=== PATIENT | female | born 1950 | race Caucasian/White ===

== ENCOUNTER 2019-06-25 16:00 | Emergency (ER) | payer OTHER ==
[~2019-06-25] VITALS: Ht 152.4 cm; Wt 62.1 kg
[~2019-06-25 16:00] MED LIST: ALLEGRA30 MG/5 ML; ASA-EC81 MG PO; ASPIR 8181 MG; CALAN80 MG; CALTRATE 600600 MG; CORTISONE25 MG; Cordarone 200 MG TAB PO; K-TAB10 MEQ; LOPRESSOR25 MG PO; LOVENOX40 MG/0.4 SUBCUTANEO; NEURONTIN300 MG; NEURONTIN300 MG PO; NEURONTIN600 MG; PARAFON FORTE500 MG; PREDNISONE10 MG PO; Prednisone PO; SYNTHROID88 MCG; Synthroid PO; TOPAMAX15 MG; TRANXENE T-TA3.75 MG; XOPENEX0.63 MG/3 IH
== END 2019-06-25 21:31 | disposition home or self-care (01) ==
LOC: ER 16:00
DX: L97.118 Non-pressure chronic ulcer of right thigh with other specified severity (principal); L98.498 Non-pressure chronic ulcer of skin of other sites with other specified severity; L08.89 Other specified local infections of the skin and subcutaneous tissue

== ENCOUNTER 2021-01-10 23:06 | Inpatient (IN) | payer OTHER ==
[~2021-01-10] VITALS: Ht 162.6 cm; Wt 60.8 kg
[2021-01-10] MEDS ORDERED: TOPAMAX25 MG (23:18)
[2021-01-10] MEDS ORDERED: XARELTO20 MG (23:20)
[2021-01-10] MEDS ORDERED: PROTECT PLUS S1 EACH (23:20)
[2021-01-10] MEDS ORDERED: CLONAZEPAM1 MG (23:20)
[2021-01-10] MEDS ORDERED: SYNTHROID75 MCG (23:20)
[2021-01-10] MEDS ORDERED: GLIMEPIRIDE2 M1 (23:21)
[2021-01-10] MEDS ORDERED: B COMPLEX1 EAC1 (23:21)
[2021-01-10] MEDS ORDERED: ZANTAC25 MG/1 ML (23:21)
[2021-01-10] MEDS ORDERED: BUTRANS (23:21)
[2021-01-12] MEDS ORDERED: RAYOS5 MG (08:24)
[2021-01-12] MEDS ORDERED: FLUDROCORTISON0.1 MG (08:24)
[2021-01-12] MEDS ORDERED: GABAPENTIN600 MG (08:25)
[2021-01-12] MEDS ORDERED: PREDNISONE20 M1 (08:25)
[2021-01-12] MEDS ORDERED: BUPRENORPHINE1 EAC2 (08:27)
[2021-01-12] MEDS ORDERED: CLOTRIMAZOLE-BE15 G1 (08:33)
[2021-01-12] MEDS ORDERED: MUPIROCIN22 GM (08:33)
[2021-01-12] MEDS ORDERED: FLUCONAZOLE100 MG (08:33)
== END 2021-01-12 10:21 | disposition expired | DRG 377 ==
LOC: ER 23:06 → ICU-2 01-11 18:46
PROVIDERS: ADMIT Internal Medicine; ATTEND Internal Medicine
PROC: 30233N1 Transfusion of Nonautologous Red Blood Cells into Peripheral Vein, Percutaneous Approach (ICD-10-PCS; 2021-01-11)
PROC: 0BH17EZ Insertion of Endotracheal Airway into Trachea, Via Natural or Artificial Opening (ICD-10-PCS; principal; 2021-01-12)
PROC: 5A1935Z Respiratory Ventilation, Less than 24 Consecutive Hours (ICD-10-PCS; 2021-01-12)
PROC: 4A033R1 Measurement of Arterial Saturation, Peripheral, Percutaneous Approach (ICD-10-PCS; 2021-01-12)
DX: K92.0 Hematemesis (principal); J96.01 Acute respiratory failure with hypoxia; E87.2 Acidosis; M81.8 Other osteoporosis without current pathological fracture; M79.7 Fibromyalgia; E87.5 Hyperkalemia; M32.9 Systemic lupus erythematosus, unspecified; E03.9 Hypothyroidism, unspecified; I48.0 Paroxysmal atrial fibrillation; Z79.01 Long term (current) use of anticoagulants